=== PATIENT | male | born 1955 | race Caucasian/White ===

== ENCOUNTER 2017-01-09 05:29 | Inpatient (IN) | payer BC ==
[2016-12-31 21:04] LABS: HEMOGLOBIN 15.8 g/dL (13.6-17.8)
[2016-12-31 21:21] LABS: ALBUMIN 4.3 G/DL (3.5-5.0); ALKALINE PHOSPHATASE 114 U/L (45-117); BUN (BLOOD UREA NITROGEN) 19 MG/DL (6-23); CALCIUM, SERUM 10.1 MG/DL (8.5-10.4); CHLORIDE, SERUM 106 MMOL/L (96-112); CO2 (CARBON DIOXIDE) 27 MMOL/L (24-34); CREATININE 1.34 MG/DL (0.70-1.30); DIRECT BILIRUBIN 0.2 MG/DL (0.0-0.4); GFR AFRICAN AMERICAN 65 ML/MIN (>=60); GFR NON AFRICAN AMERICAN 56 ML/MIN (>=60); GLUCOSE, SERUM 106 MG/DL (60-99); INDIRECT BILIRUBIN(NOT ORDER) 0.8 MG/DL (0.1-0.9); POTASSIUM, SERUM 5.7 MMOL/L (3.5-5.3); SGOT(AST) 23 U/L (5-40); SGPT(ALT) 41 U/L (5-65); SODIUM, SERUM 142 MMOL/L (135-148); TOTAL PROTEIN 7.8 G/DL (6.0-8.5)
--- NOTE | ~2017-01-09 | DS ---
Discharge Summary [facility] [address] [facility] [place]. [address] NAME: SANTI STEVEN : 51 STATUS : DIS IN PAT#: [id number] AGE: 61 ADM/REG DATE : 01/09/17 MR#: [id number] REPORT SERV DATE: 01/18/17 DICTATED BY: HARVEY MILLS II DATE: 01/17/17 REPORT STATUS : Draft TRANSCRIBED BY: OZ DATE: 01/17/17 Data Collection from hospitalization DISCHARGE DIAGNOSES: 1. Spondylolisthesis L4-L5 with severe stenosis and severe facet hypertrophy. 2. Multilevel facet arthrosis. 3. Right lower extremity radiculopathy. 4. Chronic pain consistent with neurogenic claudication. 5. Hypertension. 6. Hepatitis C. CONSULTATIONS: None. PROCEDURES PERFORMED: 1. Lumbar laminectomy and facetectomy, L4-L5. 2. Interbody arthrodesis, L4-L5. 3. Application of prosthetic device, L4-L5. 4. Posterolateral arthrodesis, L4-L5. 5. Posterior nonsegmental instrumentation, L4-L5. 6. Use of local autograft, allograft substitute, and bone morphogenetic protein. 7. Use of the microscope and stereotactic spinal imaging, 01/09/2017. PATHOLOGY: Tissue from L4-5, benign bone and cartilage with focal degenerative changes, benign skeletal muscle and soft tissue. MEDICATIONS: Prinivil 20 mg every evening, multivitamin with minerals one daily as needed, fish oil 1000 mg daily as needed, aspirin 81 mg every evening, NyQuil Cough 1 tablespoon as needed, Imodium 2 mg as needed, MS Contin 30 mg every 12 hours, Valium 5 mg four times daily as needed, oxycodone 10 mg every four hours as needed. CONDITION AT DISCHARGE: Upon discharge, he did appear to be doing well and had no complaints. DISPOSITION: He had been discharged home to continue a regular diet with activity as discussed. He was to follow up with me in the office on 02/03/2017. He was also to call on Friday for an appointment to remove the DIDIER drain. HOSPITAL COURSE: This 61-year-old male had been complaining of L-spine related symptoms. This symptoms were located in the low back with radiation into the right lower extremity with associated burning, tingling, and weakness. He was last seen in the office two weeks prior to admission and was status post MRI of the lumbar spine on 11/21/2016. When asked about the severity level of the symptoms, he reported a pain level of 6 on a 0-10 scale. He reported the pain and symptoms had not changed since his last visit. He admitted to the following factors that modified his symptoms. Walking worsened his pain and symptoms; lying down, the TENS unit, and sitting decreased his severity level of his pain and symptoms. At the time of admission, he had been taking Tylenol for his pain and symptoms. He was admitted for surgery and further treatment. Upon admission to the hospital, he had been taken to the operating room where he did undergo the above procedure. He did tolerate this Discharge Summary [address] [place]. [address] NAME: SANTI STEVEN : 51 STATUS : DIS IN PAT#: [id number] AGE: 61 ADM/REG DATE : 01/09/17 MR#: [id number] REPORT SERV DATE: 01/18/17 DICTATED BY: HARVEY MILLS II DATE: 01/17/17 REPORT STATUS : Draft TRANSCRIBED BY: OZ DATE: 01/17/17 well and was transferred to the recovery room. On postop day #1, he was afebrile, and his vital signs were stable. He did appear to be doing well postoperatively and did have less pain. On postop day #2, he had stated he felt good and denied any lower extremity radiculopathy. He had been ambulating well. He still not had a bowel movement, however, did have gas. He did remain afebrile, and his vital signs were stable. On postop day #3, he had a bowel movement and did appear to be doing well. He continued to progress from a spine standpoint. He did remain in stable condition and was then discharged with the above instructions. Information collected by: Jonas Kaur. I submit the above information as my discharge summary. NORA/OZ Harvey Mills II, M.D. / [id number] CC: Eugene Ramsey II, M.D. Allen Sherwood, M.D.
--- NOTE | ~2017-01-09 | OP ---
Record Of Operation [facility] [address] [place]. [address] NAME: SANTI STEVEN : 51 STATUS : DIS IN PAT#: [id number] AGE: 61 ADM/REG DATE : 01/09/17 MR#: [id number] REPORT SERV DATE: 01/12/17 DICTATED BY: HARVEY MILLS II DATE: 01/12/17 REPORT STATUS : Draft TRANSCRIBED BY: MODL DATE: 01/12/17 DATE OF PROCEDURE: 01/09/2017 PREOPERATIVE DIAGNOSES: 1. Spondylolisthesis, L4-L5 with severe stenosis, and severe facet hypertrophy. 2. Multilevel facet arthrosis. 3. Right lower extremity radiculopathy. 4. Buttock pain consistent with neurogenic claudication. POSTOPERATIVE DIAGNOSES: 1. Spondylolisthesis, L4-L5 with severe stenosis, and severe facet hypertrophy. 2. Multilevel facet arthrosis. 3. Right lower extremity radiculopathy. 4. Buttock pain consistent with neurogenic claudication. PROCEDURE: 1. Lumbar laminectomy and facetectomy, L4-L5. 2. Interbody arthrodesis, L4-L5. 3. Application of prosthetic device, L4-L5. 4. Posterolateral arthrodesis, L4-L5. 5. Posterior nonsegmental instrumentation, L4-L5. 6. Use of local autograft, allograft substitute, and bone morphogenic protein. 7. Use of the microscope and stereotactic spinal imaging. SURGEON: Harvey Mills M.D. FLUIDS: 1800 mL LR. ESTIMATED BLOOD LOSS: 75 mL. DRAINS: One drain. COMPLICATIONS: None. PREOPERATIVE HISTORY: This is very friendly 61-year-old gentleman, who reports significant pain radiating from his back and to his buttocks. He also reports radiating pain on down into the posterior thigh on the right with some extension into the lateral aspect of the leg. We discussed the pros and cons of continuing nonoperative care. He and I discussed the merits of surgery as well as the expected outcomes in terms of decreasing pain. We specifically spoke of where the pain reduction with typically occur. We discussed if back surgery was more beneficial for buttock and leg pain versus back pain. I felt that he would likely get some back pain improvement, but should get more improvement with his buttock and leg pain. We discussed the fact that he does have reasonable disk spaces at the other levels, but unfortunately does have some evidence of worse than age anticipated facet arthrosis at multiple levels. I discussed with him as well as his family postoperatively that he may very well require additional surgery down the road at these other levels. Record Of Operation [facility] [address] [place]. [address] NAME: SANTI STEVEN : 51 STATUS : DIS IN PAT#: [id number] AGE: 61 ADM/REG DATE : 01/09/17 MR#: [id number] REPORT SERV DATE: 01/12/17 DICTATED BY: HARVEY MILLS II DATE: 01/12/17 REPORT STATUS : Draft TRANSCRIBED BY: MODDiane DATE: 01/12/17 DESCRIPTION OF PROCEDURE: After informed consent was obtained, the patient was brought to the operating room at his request, and general anesthesia was achieved. He was placed in prone position and the back was prepped and draped in a sterile fashion. The iliac crest was now used on the left for placement of the stereotactic pin. The intraoperative CT scan was completed and stereotactic guidance used throughout the case. Next, the minimally invasive incision was now performed on the right at L4-5 and the quadrant retractor placed. The microscope was now brought into place and under microscopic visualization, the facet capsule was removed. The severe facet hypertrophy was readily identified and the high-speed bur used to begin the removal of the facet. We also placed the [id number]-dw-[id number] blades following dissection upon the transverse processes. The dcqgyvr-[id number]-rxydwsf decompression was now achieved. The pars was now fully removed and the L4 nerve root and L5 nerve roots were well-decompressed. Both exhibited severe compression upon them. The pedicle-to- pedicle decompression was again achieved and the central canal also decompressed including removal of the hypertrophic ligamentum flavum. The left lateral recess was also decompressed. At this point, the interbody arthrodesis was initiated with the diskectomy at L4-L5. Minimal retraction of the L5 nerve root was required. The endplates were now prepared with the curettes and the sandy. The prosthetic device was then chosen. Following irrigation of the disk space, the local autograft and allograft substitute were placed into the anterior disk space. The prosthetic device was now well placed into the anterior column. Allograft substitute and bone morphogenic protein were also placed into the anterior column. Next, the posterior pedicle screws were applied using stereotactic guidance. On the left side we placed percutaneous screws. A repeat CT scan confirmed acceptable placement of the implants. The rods were then well tightened and a deep drain placed on the right. Next, the transverse processes were decorticated and allograft substitute, bone morphogenic protein, and local autograft were placed along these decorticated surfaces. The standard closure was now performed and the patient then extubated and transferred to PACU in stable condition. Please note that the repeat CT scan confirmed acceptable placement of the implants. We also discussed with him preoperatively and his family postoperatively the need for resumption of his activities as well as hopeful weight loss and core strengthening program. CHIKIS/OZ Harvey Mills II, M.D. / [id number] Record Of Operation [address] [address] NAME: SANTI STEVEN : 51 STATUS : DIS IN PAT#: [id number] AGE: 61 ADM/REG DATE : 01/09/17 MR#: [id number] REPORT SERV DATE: 01/12/17 DICTATED BY: HARVEY MILLS II DATE: 01/12/17 REPORT STATUS : Draft TRANSCRIBED BY: OZ DATE: 01/12/17 CC: Eugene Ramsey II, M.D.
[~2017-01-09 05:29] MED LIST: ASAB PO; FISH-EPA1000 MG PO; IMOD PO; MULTI-VIT HP PO; PRIN20 PO; [UNRECOGNIZED DRUG - OTHER] PO
[2017-01-12] MEDS ORDERED: V5 PO (11:00)
[2017-01-12] MEDS ORDERED: OXYCOD PO (11:05)
[2017-01-12] MEDS ORDERED: MSCONT15 PO (11:07)
[2017-03-18] MEDS ORDERED: METHOC500B PO (15:54)
[2017-03-18] MEDS ORDERED: MOBIC7.5 PO (15:54)
[2017-03-18] MEDS ORDERED: NORV5 PO (15:56)
== END 2017-01-12 12:09 | disposition home or self-care (01) | DRG 460 ==
LOC: SDC/OF 05:29 → PACU 11:34 → 1SO 13:03
PROVIDERS: Orthopaedic Surgery
PROC: 4A11X4G Monitoring of Peripheral Nervous Electrical Activity, Intraoperative, External Approach (ICD-10-PCS; 2017-01-09)
PROC: 0SG00AJ Fusion of Lumbar Vertebral Joint with Interbody Fusion Device, Posterior Approach, Anterior Column, Open Approach (ICD-10-PCS; principal; 2017-01-09 07:00)
PROC: 0SG0071 Fusion of Lumbar Vertebral Joint with Autologous Tissue Substitute, Posterior Approach, Posterior Column, Open Approach (ICD-10-PCS; 2017-01-09 07:00)
PROC: 0ST20ZZ Resection of Lumbar Vertebral Disc, Open Approach (ICD-10-PCS; 2017-01-09 07:00)
DX: M47.26 Other spondylosis with radiculopathy, lumbar region (principal); I12.9 Hypertensive chronic kidney disease with stage 1 through stage 4 chronic kidney disease, or unspecified chronic kidney disease; M43.16 Spondylolisthesis, lumbar region; N18.9 Chronic kidney disease, unspecified; Z79.82 Long term (current) use of aspirin; Z79.899 Other long term (current) drug therapy; Z86.19 Personal history of other infectious and parasitic diseases
CPT/HCPCS: 36415; 80048; 80076; 82962; 84132; 85014; 85018; 87641; 88304; 88311; 93005; 97116-GP; 97161-GP; A9270-GY; C1713; C1768; C1769; J0690; J1170; J2250; J2370; J2405; J2710; J3010